=== PATIENT | male | born 1935 | race Caucasian/White ===

== ENCOUNTER → 2016-10-24 | Outpatient (CLI) | payer MEDICARE, OTHER ==
[2016-10-24 11:36] LABS: HEMOGLOBIN 12.2 gm/dl (14.0-17.5); RED BLOOD COUNT 4.55 M/UL (4.20-5.50); WHITE BLOOD COUNT 5.9 K/UL (4.5-11.0)
== END ==
LOC: OPSV 11:00
PROVIDERS: Internal Medicine
DX: D62 Acute posthemorrhagic anemia (principal); D50.9 Iron deficiency anemia, unspecified; K90.9 Intestinal malabsorption, unspecified
CPT/HCPCS: 36415; 82728; 83540; 85027; 96365; J1756; J7050

== ENCOUNTER → 2016-11-28 | Outpatient (CLI) | payer MEDICARE, OTHER ==
[2016-11-28 11:53] LABS: HEMOGLOBIN 12.7 gm/dl (14.0-17.5); RED BLOOD COUNT 4.64 M/UL (4.20-5.50); WHITE BLOOD COUNT 5.7 K/UL (4.5-11.0)
== END ==
LOC: OPSV 11:00
PROVIDERS: Internal Medicine
DX: D62 Acute posthemorrhagic anemia (principal); D50.9 Iron deficiency anemia, unspecified; K90.9 Intestinal malabsorption, unspecified
CPT/HCPCS: 82728; 83540; 85027; 96365; J1756; J7050

== ENCOUNTER → 2016-12-27 | Outpatient (CLI) | payer MEDICARE, OTHER ==
[~2016-12-27] VITALS: Ht 182.9 cm; Wt 136.1 kg
[2016-12-27 13:21] LABS: HEMOGLOBIN 12.1 gm/dl (14.0-17.5); RED BLOOD COUNT 4.45 M/UL (4.20-5.50); WHITE BLOOD COUNT 5.8 K/UL (4.5-11.0)
== END ==
LOC: OPSV 12-24 11:00
PROVIDERS: Internal Medicine
DX: D62 Acute posthemorrhagic anemia (principal); D50.9 Iron deficiency anemia, unspecified; K90.9 Intestinal malabsorption, unspecified
CPT/HCPCS: 36415; 82728; 83540; 85027; 96365; J1756; J7050

== ENCOUNTER → 2017-01-21 | Outpatient (CLI) | payer MEDICARE, OTHER ==
[2017-01-21 11:13] LABS: HEMOGLOBIN 12.9 gm/dl (14.0-17.5); RED BLOOD COUNT 4.62 M/UL (4.20-5.50); WHITE BLOOD COUNT 10.9 K/UL (4.5-11.0)
== END ==
LOC: OPSV 10:37
PROVIDERS: Internal Medicine
DX: D62 Acute posthemorrhagic anemia (principal); D50.9 Iron deficiency anemia, unspecified; K90.9 Intestinal malabsorption, unspecified
CPT/HCPCS: 36415; 82728; 83540; 85027; 96365; J1756; J7050

== ENCOUNTER → 2020-08-28 | Outpatient (CLI) | payer MEDICARE, OTHER ==
[~2020-08-28] VITALS: Ht 182.9 cm; Wt 126.6 kg
== END ==
LOC: OPSV 09:42
DX: D62 Acute posthemorrhagic anemia (principal); D50.9 Iron deficiency anemia, unspecified; K90.9 Intestinal malabsorption, unspecified
CPT/HCPCS: 96365; J1756

== ENCOUNTER → 2020-09-25 | Outpatient (CLI) | payer MEDICARE, OTHER ==
[~2020-09-25] VITALS: Ht 182.9 cm; Wt 126.6 kg
== END ==
LOC: OPSV 09:51
DX: D50.9 Iron deficiency anemia, unspecified (principal); D62 Acute posthemorrhagic anemia; K90.9 Intestinal malabsorption, unspecified
CPT/HCPCS: 96365; J1756

== ENCOUNTER → 2020-10-23 | Outpatient (CLI) | payer MEDICARE, OTHER ==
[~2020-10-23] VITALS: Ht 182.9 cm; Wt 126.6 kg
== END ==
LOC: OPSV 09:57
DX: D62 Acute posthemorrhagic anemia (principal); D50.9 Iron deficiency anemia, unspecified; K90.9 Intestinal malabsorption, unspecified
CPT/HCPCS: 96365; J1756

== ENCOUNTER → 2020-11-21 | Outpatient (CLI) | payer MEDICARE, OTHER ==
[~2020-11-21] VITALS: Ht 182.9 cm; Wt 126.6 kg
== END ==
LOC: OPSV 09:43
DX: D50.9 Iron deficiency anemia, unspecified (principal); Z80.9 Family history of malignant neoplasm, unspecified; K90.9 Intestinal malabsorption, unspecified
CPT/HCPCS: 96365; J1756

== ENCOUNTER → 2021-01-08 | Outpatient (CLI) | payer MEDICARE, OTHER | LOC: KOH-I 10:11 | DX: R05 Cough (principal); R91.8 Other nonspecific abnormal finding of lung field | CPT/HCPCS: 71046 ==

== ENCOUNTER → 2021-03-21 | Outpatient (CLI) | payer MEDICARE, OTHER ==
[~2021-03-21] VITALS: Ht 182.9 cm; Wt 126.6 kg
[~2021-03-21] MED LIST: HYDRALAZINE HCL50 MG PO; VIBRAMYCIN 100100 MG PO
== END ==
LOC: OPSV 09:00
PROVIDERS: Internal Medicine
DX: D62 Acute posthemorrhagic anemia (principal)
CPT/HCPCS: 36415; 36430; 85014; 85018; 86850; 86900; 86901; 86920; 96375; J1940; P9016

== ENCOUNTER → 2021-03-22 | Outpatient (CLI) | payer MEDICARE, OTHER | LOC: OPSV 07:36 | DX: D62 Acute posthemorrhagic anemia (principal) | CPT/HCPCS: 36430; P9016 ==

== ENCOUNTER 2021-03-27 10:28 | Emergency (ER) | payer MEDICARE, OTHER ==
[2021-03-27 11:52] LABS: RED BLOOD COUNT 3.54 M/UL (4.20-5.50); WHITE BLOOD COUNT 4.6 K/UL (4.5-11.0)
[2021-03-27 11:54] LABS: HEMOGLOBIN 10.3 gm/dl (14.0-17.5)
[2021-03-27 12:23] LABS: BUN/CREATININE RATIO 16 (0-10)
[2021-03-27] MEDS ORDERED: VIBRAMYCIN 100100 MG PO (16:10)
[2021-03-27] MEDS ORDERED: HYDRALAZINE HCL50 MG PO (16:10)
== END 2021-03-27 16:46 | disposition home or self-care (01) ==
LOC: ER1 10:28
PROVIDERS: Physician Assistant
DX: R00.1 Bradycardia, unspecified (principal); I10 Essential (primary) hypertension; E78.5 Hyperlipidemia, unspecified; Z90.89 Acquired absence of other organs; Z20.822 Contact with and (suspected) exposure to COVID-19
CPT/HCPCS: 70450; 71045; 80053; 81001; 82550; 82553; 83874; 83880; 84439; 84443; 84484; 85025; 93005; 96374; 99284; J0360; U0002

== ENCOUNTER → 2021-06-11 | Outpatient (CLI) | payer MEDICARE, OTHER | LOC: HEART 5 09:00 | DX: I48.91 Unspecified atrial fibrillation (principal); R00.1 Bradycardia, unspecified; R06.02 Shortness of breath; I27.20 Pulmonary hypertension, unspecified; I08.3 Combined rheumatic disorders of mitral, aortic and tricuspid valves | CPT/HCPCS: 93306 ==

== ENCOUNTER → 2021-06-19 | Outpatient (CLI) | payer MEDICARE, OTHER ==
[2021-06-19 13:32] LABS: HEMOGLOBIN 5.7 gm/dl (14.0-17.5)
[2021-06-19 22:49] LABS: HEMOGLOBIN 7.6 gm/dl (14.0-17.5); RED BLOOD COUNT 2.66 M/UL (4.20-5.50); WHITE BLOOD COUNT 4.5 K/UL (4.5-11.0)
== END ==
LOC: OPSV 12:10
PROVIDERS: Internal Medicine
DX: D62 Acute posthemorrhagic anemia (principal)
CPT/HCPCS: 36415; 36430; 85014; 85018; 85027; 86850; 86900; 86901; 86920; P9016

== ENCOUNTER → 2021-06-22 | Outpatient (CLI) | payer MEDICARE, OTHER ==
[~2021-06-22] MED LIST changes: +ATORVASTATIN CA20 MG PO; +FUROSEMIDE20 MG PO; +HYDRALAZINE HC100 MG PO; +ISOSORBIDE MONO20 MG PO; +POTASSIUM CHLO20 ME1 PO; +PROTONIX40 MG PO; +QUINAPRIL HCL20 MG PO; +VITAMIN D325 MCG PO
[2021-06-22 10:51] LABS: HEMOGLOBIN 7.3 gm/dl (14.0-17.5); RED BLOOD COUNT 2.54 M/UL (4.20-5.50)
== END ==
LOC: LAB 10:21
PROVIDERS: Internal Medicine
DX: D62 Acute posthemorrhagic anemia (principal)
CPT/HCPCS: 36415; 85025

== ENCOUNTER 2021-06-25 10:25 | Outpatient (CLI) | payer MEDICARE, OTHER ==
[~2021-06-25] VITALS: Ht 180.3 cm; Wt 113.4 kg
[~2021-06-25 10:25] MED LIST changes: -ATORVASTATIN CA20 MG PO; -FUROSEMIDE20 MG PO; -HYDRALAZINE HC100 MG PO; -ISOSORBIDE MONO20 MG PO; -POTASSIUM CHLO20 ME1 PO; -PROTONIX40 MG PO; -QUINAPRIL HCL20 MG PO; -VITAMIN D325 MCG PO
[2021-06-25 11:31] LABS: HEMOGLOBIN 7.3 gm/dl (14.0-17.5)
[2021-06-25] MEDS ORDERED: ATORVASTATIN CA20 MG PO (16:48)
[2021-06-25] MEDS ORDERED: PROTONIX40 MG PO (16:48)
[2021-06-25] MEDS ORDERED: FUROSEMIDE20 MG PO (16:48)
[2021-06-25] MEDS ORDERED: HYDRALAZINE HC100 MG PO (16:48)
[2021-06-25] MEDS ORDERED: POTASSIUM CHLO20 ME1 PO (16:49)
[2021-06-25] MEDS ORDERED: QUINAPRIL HCL20 MG PO (16:49)
[2021-06-25] MEDS ORDERED: VITAMIN D325 MCG PO (16:52)
[2021-06-25] MEDS ORDERED: ISOSORBIDE MONO20 MG PO (16:52)
[2021-06-25 19:09] LABS: RED BLOOD COUNT 3.4 M/UL (4.20-5.50); WHITE BLOOD COUNT 5.2 K/UL (4.5-11.0)
[2021-06-25 19:12] LABS: HEMOGLOBIN 9.6 gm/dl (14.0-17.5)
== END 2021-06-25 19:15 | disposition home or self-care (01) ==
LOC: OPSV 10:25 → M/S 16:45 → OPSV 19:15
PROVIDERS: Internal Medicine
DX: D62 Acute posthemorrhagic anemia (principal)
CPT/HCPCS: 36415; 36430; 80048; 85014; 85018; 85025; 86850; 86900; 86901; 86920; 96375; J1940; J7050; P9016

== ENCOUNTER 2021-07-10 11:57 | Outpatient (CLI) | payer MEDICARE, OTHER ==
[~2021-07-10 11:57] MED LIST changes: +ATORVASTATIN CA20 MG PO; +FUROSEMIDE20 MG PO; +HYDRALAZINE HC100 MG PO; +ISOSORBIDE MONO20 MG PO; +POTASSIUM CHLO20 ME1 PO; +PROTONIX40 MG PO; +QUINAPRIL HCL20 MG PO; +VITAMIN D325 MCG PO
--- NOTE | 2021-07-10 16:47 | NUR ---
FITO RYAN IN THE [facility]USION [facility] SAID DR. FARNSWORTH SAID IT WAS OK TO START THE BLOOD TRANSFUSION AND WOULD PUT THE ORDER IN FOR THE BLOOD PRESSURE MEDICATION.
[2021-07-10 19:43] LABS: HEMOGLOBIN 8.4 gm/dl (14.0-17.5); RED BLOOD COUNT 3.05 M/UL (4.20-5.50); WHITE BLOOD COUNT 4.6 K/UL (4.5-11.0)
== END 2021-07-10 20:31 | disposition home or self-care (01) ==
LOC: OPSV 11:57 → MED SURG 4 16:00 → OPSV 20:31
PROVIDERS: Internal Medicine
DX: D62 Acute posthemorrhagic anemia (principal)
CPT/HCPCS: 36415; 36430; 85027; 86850; 86900; 86901; 86920; J7050; P9016

== ENCOUNTER 2021-08-27 13:32 | Inpatient (IN) | payer MEDICARE, OTHER ==
[~2021-08-27] VITALS: Ht 180.3 cm; Wt 117.3 kg
[2021-08-27 14:44] LABS: RED BLOOD COUNT 1.84 M/UL (4.20-5.50); WHITE BLOOD COUNT 5.1 K/UL (4.5-11.0)
[2021-08-27 14:48] LABS: HEMOGLOBIN 5.1 gm/dl (14.0-17.5)
[2021-08-27] MEDS ORDERED: XYZAL5 MG PO (17:17)
[2021-08-27] MEDS ORDERED: XELJANZ XR PO (17:18)
[2021-08-27] MEDS ORDERED: LEVOFLOXACIN500 MG PO (17:19)
[2021-08-27] MEDS ORDERED: MUPIROCIN22 GM TOP (17:20)
[2021-08-28 04:55] LABS: RED BLOOD COUNT 2.35 M/UL (4.20-5.50); WHITE BLOOD COUNT 6.8 K/UL (4.5-11.0)
[2021-08-28 04:56] LABS: HEMOGLOBIN 6.7 gm/dl (14.0-17.5)
[2021-08-28 10:26] LABS: HEMOGLOBIN 7.7 gm/dl (14.0-17.5)
[2021-08-29 03:55] LABS: HEMOGLOBIN 8.7 gm/dl (14.0-17.5); WHITE BLOOD COUNT 5.8 K/UL (4.5-11.0)
[2021-08-30 04:42] LABS: HEMOGLOBIN 8.7 gm/dl (14.0-17.5); RED BLOOD COUNT 3.1 M/UL (4.20-5.50); WHITE BLOOD COUNT 5.6 K/UL (4.5-11.0)
[2021-08-31 03:28] LABS: HEMOGLOBIN 9.2 gm/dl (14.0-17.5); RED BLOOD COUNT 3.2 M/UL (4.20-5.50)
[2021-09-01 08:38] LABS: HEMOGLOBIN 8.2 gm/dl (14.0-17.5); RED BLOOD COUNT 2.83 M/UL (4.20-5.50); WHITE BLOOD COUNT 4.3 K/UL (4.5-11.0)
[2021-09-01 10:14] LABS: CREATININE, URINE 73.5 mg/dL (Not Estab.)
[2021-09-02 09:10] LABS: COMPLEMENT C3, SERUM 83 mg/dL (82-167); COMPLEMENT C4, SERUM 15 mg/dL (12-38)
[2021-09-02 16:25] LABS: HEMOGLOBIN 8.8 gm/dl (14.0-17.5); RED BLOOD COUNT 3.1 M/UL (4.20-5.50); WHITE BLOOD COUNT 4.8 K/UL (4.5-11.0)
[2021-09-03 04:09] LABS: HEMOGLOBIN 7.9 gm/dl (14.0-17.5); RED BLOOD COUNT 2.83 M/UL (4.20-5.50); WHITE BLOOD COUNT 4.4 K/UL (4.5-11.0)
[2021-09-03 13:11] LABS: ANTI-DSDNA ANTIBODIES <1 IU/mL (0-9)
[2021-09-03 15:11] LABS: A/G RATIO 1.5 (0.7-1.7); ALPHA-1-GLOBULIN 0.3 g/dL (0.0-0.4); ALPHA-2-GLOBULIN 0.6 g/dL (0.4-1.0); BETA GLOBULIN 0.6 g/dL (0.7-1.3); GAMMA GLOBULIN 0.6 g/dL (0.4-1.8); GLOBULIN, TOTAL 2.1 g/dL (2.2-3.9); IMMUNOFIXATION RESULT, SERUM Comment: (.); IMMUNOGLOBULIN A, QN, SERUM 300 mg/dL (61-437); IMMUNOGLOBULIN G, QN, SERUM 663 mg/dL (603-1613); IMMUNOGLOBULIN M, QN, SERUM 37 mg/dL (15-143); M-SPIKE Not Observed g/dL (Not Observed); PROTEIN, TOTAL, SERUM 5.1 g/dL (6.0-8.5)
[2021-09-04 03:56] LABS: HEMOGLOBIN 8.1 gm/dl (14.0-17.5); RED BLOOD COUNT 2.84 M/UL (4.20-5.50); WHITE BLOOD COUNT 4.9 K/UL (4.5-11.0)
[2021-09-04 16:13] LABS: ANTIMYELOPEROXIDASE (MPO) ABS <9.0 U/mL (0.0-9.0); ANTIPROTEINASE 3 (PR-3) ABS <3.5 U/mL (0.0-3.5); ATYPICAL PANCA <1:20 titer (Neg:<1:20); CYTOPLASMIC (C-ANCA) <1:20 titer (Neg:<1:20); PERINUCLEAR (P-ANCA) <1:20 titer (Neg:<1:20)
[2021-09-05 02:59] LABS: HEMOGLOBIN 8.3 gm/dl (14.0-17.5); RED BLOOD COUNT 2.88 M/UL (4.20-5.50); WHITE BLOOD COUNT 4.8 K/UL (4.5-11.0)
[2021-09-05] MEDS ORDERED: ALDACTONE 25MG25 MG PO (10:16)
[2021-09-05] MEDS ORDERED: NIFEREX 150 MG150 MG PO (10:16)
--- NOTE | 2021-09-05 15:12 | NUR ---
pt 02 82% on room air
== END 2021-09-05 16:01 | disposition home or self-care (01) | DRG 377 ==
LOC: ER1 13:32 → CDU 16:00 → PROG CARE 16:00
PROVIDERS: Emergency Medicine; Internal Medicine; Internal Medicine Nephrology; ADMIT Internal Medicine
PROC: 30233N1 Transfusion of Nonautologous Red Blood Cells into Peripheral Vein, Percutaneous Approach (ICD-10-PCS; principal; 2021-08-27)
PROC: 0DJ08ZZ Inspection of Upper Intestinal Tract, Via Natural or Artificial Opening Endoscopic (ICD-10-PCS; 2021-08-29)
PROC: B24BZZZ Ultrasonography of Heart with Aorta (ICD-10-PCS; 2021-08-30)
DX: K55.21 Angiodysplasia of colon with hemorrhage (principal); I50.43 Acute on chronic combined systolic (congestive) and diastolic (congestive) heart failure; Z20.822 Contact with and (suspected) exposure to COVID-19; J96.21 Acute and chronic respiratory failure with hypoxia; D62 Acute posthemorrhagic anemia; I48.20 Chronic atrial fibrillation, unspecified; N17.9 Acute kidney failure, unspecified; I13.0 Hypertensive heart and chronic kidney disease with heart failure and stage 1 through stage 4 chronic kidney disease, or unspecified chronic kidney disease; I85.00 Esophageal varices without bleeding; D68.61 Antiphospholipid syndrome; K76.6 Portal hypertension; I25.10 Atherosclerotic heart disease of native coronary artery without angina pectoris; E78.00 Pure hypercholesterolemia, unspecified; K74.60 Unspecified cirrhosis of liver; E78.5 Hyperlipidemia, unspecified; R68.0 Hypothermia, not associated with low environmental temperature; I08.1 Rheumatic disorders of both mitral and tricuspid valves; K76.0 Fatty (change of) liver, not elsewhere classified; N18.32 Chronic kidney disease, stage 3b; R00.1 Bradycardia, unspecified; I27.20 Pulmonary hypertension, unspecified; M81.0 Age-related osteoporosis without current pathological fracture; R53.81 Other malaise; E66.01 Morbid (severe) obesity due to excess calories; J84.10 Pulmonary fibrosis, unspecified; M06.9 Rheumatoid arthritis, unspecified; K55.20 Angiodysplasia of colon without hemorrhage; Z79.01 Long term (current) use of anticoagulants; Z90.49 Acquired absence of other specified parts of digestive tract; Z86.711 Personal history of pulmonary embolism; Z86.73 Personal history of transient ischemic attack (TIA), and cerebral infarction without residual deficits; Z82.49 Family history of ischemic heart disease and other diseases of the circulatory system; Z82.3 Family history of stroke; Z68.34 Body mass index [BMI] 34.0-34.9, adult
CPT/HCPCS: ECHO; 36415; 36430; 36600; 70450; 71045; 76705; 80048; 80053; 81001; 82043; 82272; 82550; 82553; 82570; 82728; 82784; 82803; 82962; 83520; 83540; 83550; 83605; 83735; 83874; 83880; 84155; 84156; 84165; 84484; 85014; 85018; 85025; 85027; 85379; 86160; 86225; 86256; 86334; 86850; 86900; 86901; 86920; 87040; 93005; 93306; 94640; 94664; 94760; 96374; 96375; 97116-GP-CQ; 97162; 97166; 97530; 97530-GP-CQ; 97535; 99285; A6212; C9113; J0696; J1200; J1756; J1940; J2250; J2354; J7030; J7040; J7050; P9016; P9047; Q0177; U0002